=== PATIENT | female | born 1955 | race Caucasian/White ===

== ENCOUNTER → 2020-04-19 15:52 | Outpatient (CLI) | payer MEDICARE, SELFPAY ==
--- NOTE | ~2020-04-19 | MM_ITS ---
EXAMINATION: MM screening [facility] BI w lisbeth HISTORY: Screening mammogram TECHNIQUE: Craniocaudal and mediolateral oblique 3-D tomosynthesis images were obtained and synthetic 2-D images were generated. CAD analysis was submitted and interpreted. COMPARISON: 11/19/2017, 09/16/2014, 09/14/2012 BREAST PARENCHYMAL COMPOSITION: There are scattered areas of fibroglandular density. FINDINGS: RIGHT BREAST: There is no evidence of suspicious mass, calcification, or architectural distortion to suggest malignancy. There has been no significant interval change. LEFT BREAST: There is a possible mass in the anterior third of the outer breast best appreciated 2.5 cm from the nipple on mediolateral oblique tomosynthesis image 17/61. IMPRESSION: 1. Possible left breast mass. 2. Additional mammographic views and possible breast ultrasound are recommended. BI-RADS Category 0: Incomplete: Needs additional imaging evaluation. Reviewed, dictated and finalized at location A. IMPRESSION: 1. Possible left breast mass. 2. Additional mammographic views and possible breast ultrasound are recommended . BI-RADS Category 0: Incomplete: Needs additional imaging evaluation.
== END ==
PROVIDERS: PCP Family Medicine; Visit Provider Family Medicine
DX: Z12.31 Encounter for screening mammogram for malignant neoplasm of breast (principal)
CPT/HCPCS: 77063; 77067

== ENCOUNTER → 2020-05-04 07:50 | Outpatient (CLI) | payer MEDICARE, SELFPAY ==
--- NOTE | ~2020-05-04 | MMUS_ITS ---
EXAMINATION: MM diagnostic mammo unilat LT, US breast LT limited HISTORY: Follow-up left breast asymmetries TECHNIQUE: Additional 3-D tomosynthesis images of the left breast were performed and synthetic 2-D im ages were generated. CAD analysis was submitted and interpreted. High resolution left limited breast ultrasound was performed. COMPARISON: Comparison to multiple prior studies sequentially, with oldest reviewed study dated 09/14. BREAST PARENCHYMAL COMPOSITION: Breast composed of scattered areas of fibroglandular density FINDINGS: MAMMOGRAPHIC FINDINGS: Breast composed of scattered areas of fibroglandular density. There are no suspicious masses, calcifi cations or architectural distortion to suggest malignancy. ULTRASOUND: Limited left breast ultrasound: There are multiple small cysts in the periareolar location of the lef t breast, largest measuring 6 mm. No suspicious masses to suggest malignancy. IMPRESSION: 1. No evidence for malignancy in the left breast. Benign findings. 2. Routine yearly screening mammogram and regular clinical breast examination are recommended. BI-RADS Category 2: Benign finding(s). Reviewed, dictated and finalized at location A. IMPRESSION: 1. No evidence for malignancy in the left breast. Benign findings. 2. Routine yearly screening mammogram and regular clinical breast examination a re recommended. BI-RADS Category 2: Benign finding(s).
== END ==
PROVIDERS: PCP Family Medicine; Visit Provider Physician Assistant
DX: R92.8 Other abnormal and inconclusive findings on diagnostic imaging of breast (principal)
CPT/HCPCS: 76642; 77065

== ENCOUNTER 2020-06-14 10:54 | Outpatient (NON) | payer MEDICARE, SELFPAY ==
[2020-06-15 01:18] LABS: SARS-CoV-2 RNA PCR Negative
== END 2020-06-14 10:55 ==
PROVIDERS: PCP Family Medicine; Visit Provider Family Medicine
DX: Z20.828 Contact with and (suspected) exposure to other viral communicable diseases (principal)
CPT/HCPCS: 87635; C9803; U0003

== ENCOUNTER 2021-01-28 10:00 | Outpatient (CLI) | payer MEDICARE, SELFPAY ==
--- NOTE | ~2021-01-28 | US_ITS ---
EXAMINATION: US carotid duplex BI EXAM DATE: 01/28/2021 10:27 INDICATION: R51.9 - Headache, unspecified. TECHNIQUE: Grayscale, color and pulsed Doppler images of the cervical carotid arteries were obtained . The degree of vessel stenosis is placed in one of the following categories: normal, <50% stenosis, 50-69% stenosis, >=70% stenosis but less than near-occlusion, near-occlusion, or occlusion. Note that percent stenosis relative to normal distal artery lumen diameter is indirectly measured from velocit y measurements as described by Bahman, et al. Radiology 2003; 229:340-346. There is no prior study fo r comparison. FINDINGS: RIGHT SIDE: Right common carotid artery peak systolic velocity (PSV in cm/s): 72 Right bulb/internal carotid artery peak systolic velocity (PSV in cm/s): 70 Right internal carotid artery end diastolic velocity (EDV in cm/s): 20 Right ICA/CCA peak systolic ratio: 1.0 Right external carotid artery peak systolic velocity (PSV in cm/s): 65 Right vertebral artery antegrade flow: yes There is minimal carotid bulb plaque. Velocity and Doppler waveforms in the common and internal carotid arteries is normal. LEFT SIDE: Left common carotid artery peak systolic velocity (PSV in cm/s): 81 Left bulb/internal carotid artery peak systolic velocity (PSV in cm/s): 77 Left internal carotid artery end diastolic velocity (EDV in cm/s): 27 Left ICA/CCA peak systolic ratio: 0.9 Left external carotid artery peak systolic velocity (PSV in cm/s): 66 Left vertebral artery antegrade flow: yes There is minimal carotid bulb plaque. Velocity and Doppler waveforms in the common and internal carotid arteries is normal. IMPRESSION: 1. Less than 50 percent stenosis in the right internal carotid artery. 2. Less than 50 percent stenosis in the left internal carotid artery. > Reviewed, dictated and finalized at location B.
== END 2021-01-28 10:01 | disposition home or self-care (01) ==
LOC: ANHIMG 10:03
PROVIDERS: PCP Family Medicine; Visit Provider Family Medicine
DX: R51.9 Headache, unspecified (principal); I65.23 Occlusion and stenosis of bilateral carotid arteries
CPT/HCPCS: 93880

== ENCOUNTER 2022-03-28 15:28 | Outpatient (CLI) | payer MEDICARE, SELFPAY ==
--- NOTE | ~2022-03-28 | XR_ITS ---
EXAMINATION: XR ribs LT 2V w CXR 2V INDICATION: Pleurodynia TECHNIQUE: AP and lateral views of the chest and 3 views of the left ribs were obtained. COMPARISON: 02/11/2017 FINDINGS: The lungs are free of acute opacities. Calcified pulmonary nodules are consistent with old granulomatous disease. The cardiomediastinal silhouette is normal. No pleural effusion or pneumothora x. Changes of anterior fusion are noted in the lower cervical spine. There is moderate thoracic spond ylosis. There are subtle deformities at the anterior aspects of the left seventh and eighth ribs near the costochondral junctions. IMPRESSION: 1. Subtle fractures of the left seventh and eighth ribs near the costochondral junctions. 2. No acute cardiopulmonary abnormality. Reviewed, dictated and finalized at location B.
== END 2022-03-28 15:29 | disposition home or self-care (01) ==
PROVIDERS: PCP Family Medicine; Visit Provider Nurse Practitioner Gerontology
DX: S22.42XA Multiple fractures of ribs, left side, initial encounter for closed fracture (principal); X58.XXXA Exposure to other specified factors, initial encounter
CPT/HCPCS: 71046; 71100

== ENCOUNTER → 2022-05-09 10:29 | Outpatient (CLI) | payer MEDICARE, SELFPAY ==
--- NOTE | ~2022-05-09 | DEXA_ITS ---
Bone Density Report Name: MANDY PERRY Age: 67 Sex: Female Ethnicity: White Date of : 1955 Indication: postmenopausal; screening for osteoporosis; parental hip fracture; prior fracture; Referring Provider: THANH ROYAL Study: Bone densitometry was performed. Exam Date: May 09, 2022 Accession number: [id number] Bone Density: Region BMD T-score Z-score Classification AP Spine (L1-L4) 0.953 -0.9 1.1 Normal Femoral Neck (Left) 0.687 -1.5 0.2 Osteopenia Total Hip (Left) 0.803 -1.1 0.2 Osteopenia Femoral Neck (Right) 0.713 -1.2 0.4 Osteopenia Total Hip (Right) 0.837 -0.9 0.5 Normal Total Hip Mean 0.820 -1.0 0.4 Normal World Health Organization criteria for BMD impression classify patients as: Normal (T-score at or above -1.0), Osteopenia (T-score between -1.0 and -2.5), or Osteoporosis (T-score at or below -2.5). 10-year Fracture Risk(1): Major Osteoporotic Fracture 26% Hip Fracture 2.4% Reported Risk Factors: [place] (), Neck BMD=0.687, BMI=26.4, previous fracture, parental fracture (1) FRAX(R) Version 3.08. Fracture probability calculated for an untreated patient. Fracture probability may be lower if the patient has received treatment. Clinical Information Provided by Patient: Has had a low trauma fracture Parent has had a hip fracture Has used the following medications: Calcium Patient maximum height was 65 Menopause Age: 45 Does not regularly consume dairy products Drinks caffeinated beverages Onset of menses at age 13 Number of children 2 Impression: The patient has low bone mass, based on the Left Femoral Neck T-score. The patient has an estimated ten-year risk of hip fracture of 2.4% and an estimated ten-year risk of major fracture of 26%, based on the WHO FRAX algorithm. The patient has risk factors, including: parental hip fracture, previous fracture. Discussion: BONE DENSITY IS LOW AT ONE OR MORE SKELETAL SITES. THE PATIENT'S BMD AND CLINICAL RISK FACTORS CONTRIBUTE TO THIS PATIENT'S INCREASED RISK OF FRACTURE. This patient's lowest T-score is low at one or more skeletal sites. It meets the World Health Organization's (WHO) criteria for ?low bone mass? (T-score between -1.0 and -2.5). The patient's 10-year risk of a major osteoporotic fracture as calculated by FRAX exceeds the threshold where pharmacological therapy is recommended by the National Osteoporosis Foundation (NOF). However, all treatment decisions require clinical judgment and consideration of individual patient factors, including patient preferences, comorbidities, previous drug use, risk factors not captured in the FRAX model (e.g., frailty, falls, vitamin D deficiency, increased bone turnover, interval significant decline in bone density) and possible under or overestimation of fracture ris
== END ==
PROVIDERS: PCP Family Medicine; Visit Provider Nurse Practitioner Gerontology
DX: Z13.820 Encounter for screening for osteoporosis (principal); Z78.0 Asymptomatic menopausal state; M85.852 Other specified disorders of bone density and structure, left thigh; M85.851 Other specified disorders of bone density and structure, right thigh
CPT/HCPCS: 77080

== ENCOUNTER → 2022-07-01 11:21 | Outpatient (CLI) | payer MEDICARE, SELFPAY ==
--- NOTE | ~2022-07-01 | MM_ITS ---
EXAMINATION: MM screening [facility] w lisbeth HISTORY: Screening TECHNIQUE: Craniocaudal and mediolateral oblique 3-D tomosynthesis images were obtained and synthetic 2-D images were generated. CAD analysis was submitted and interpreted. COMPARISON: Comparison to multiple prior studies sequentially, with oldest reviewed study dated 09/14. BREAST PARENCHYMAL COMPOSITION: There are scattered areas of fibroglandular density. FINDINGS: There is no evidence of suspicious mass, calcification, or architectural distortion to sugg est malignancy in either breast. There has been no suspicious interval change. IMPRESSION: 1. No mammographic evidence of malignancy. 2. Recommend routine screening mammography in one year. BI-RADS Category 1: Negative Reviewed, dictated and finalized at location B. UE TECHNOLOGIST
== END ==
PROVIDERS: PCP Family Medicine; Visit Provider Family Medicine
DX: Z12.31 Encounter for screening mammogram for malignant neoplasm of breast (principal)
CPT/HCPCS: 77063; 77067

== ENCOUNTER → 2023-07-03 10:09 | Outpatient (CLI) | payer MEDICARE, SELFPAY ==
--- NOTE | ~2023-07-03 | MM_ITS ---
EXAMINATION: MM screening [facility] w lisbeth HISTORY: Screening TECHNIQUE: Craniocaudal and mediolateral oblique 3-D tomosynthesis images were obtained and synthetic 2-D images were generated. CAD analysis was submitted and interpreted. COMPARISON: Comparison to multiple prior studies sequentially, with oldest reviewed study dated 09/16. BREAST PARENCHYMAL COMPOSITION: There are scattered areas of fibroglandular density. FINDINGS: There is no evidence of suspicious mass, calcification, or architectural distortion to sugg est malignancy in either breast. There has been no suspicious interval change. IMPRESSION: 1. No mammographic evidence of malignancy. 2. Recommend routine screening mammography in one year. BI-RADS Category 1: Negative Reviewed, dictated and finalized at location A. R LAYER HELPER
== END ==
PROVIDERS: PCP Family Medicine; Visit Provider Family Medicine
DX: Z12.31 Encounter for screening mammogram for malignant neoplasm of breast (principal)
CPT/HCPCS: 77063; 77067

== ENCOUNTER 2024-09-23 07:58 | Outpatient (CLI) | payer MEDICARE, SELFPAY | END 2024-09-23 07:59 | disposition home or self-care (01) | PROVIDERS: PCP Family Medicine; Visit Provider Family Medicine | DX: Z12.31 Encounter for screening mammogram for malignant neoplasm of breast (principal); Z78.0 Asymptomatic menopausal state; M85.852 Other specified disorders of bone density and structure, left thigh | CPT/HCPCS: 77063; 77067; 77080 ==

== ENCOUNTER 2024-12-12 14:59 | Emergency (ER) | payer MEDICARE, SELFPAY ==
[2024-12-12 15:01] VITALS: BP 147/82; PULSE 73; RESP 18; TEMP 36.4; O2SAT 100
--- OUTSIDE RECORDS SUMMARY | 2024-12-12 15:02 | XMS_ITS | Continuity of Care Document ---
Author Organization [facility] Address [address] [place] [address] OWEN Sanders [phone] Support Name Relationship Address Phone MARIA FERNANDA PERRY spouse Unknown Unavailable MARIA FERNANDA PERRY spouse Unknown Unavailable Encounter Kirk GOMEZ [id number] Date(s): 12/10/24 - 12/10/[address] Pelon Hernandez M.D., Medical Tech [phone] [place] [address] Discharge Disposition: Home or Self Care Attending Physician: Rashi Fritz DO Encounter Type: Outpatient Results Laboratory List Name Date Blood Collect Police Request 12/11/24 Most recent to oldest [Reference Range]: 1 Collection Complete Done *NA* (12/11/24 12:15 AM) Social History Social History Type Response Sex Female Sex Representation Female (finding) Patient Care team information Care Team Related Persons Name: MARIA FERNANDA PERRY Insurance Providers Guarantor name: MANDY ORLANDO Health Plan Information #: 2 Payer: [employer] Member Number: NA Policy Number: NA Group Number: NA Payer Identifier: NA
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
--- OUTSIDE RECORDS SUMMARY | 2024-12-12 15:02 | XMS_ITS | Referral Summary ---
Author Organization [facility] Address [address] [place] [address] Care Team Providers Care Gift Shop Clerk Name Role Phone Elise Mcguire MD Primary Care Provider + Encounters Date Type Department Care Team Description 11/06/2024 9:20 AM CDT Office Visit [facility] ENT [address] [place] [address] [place] [address] Michael Valerio MD Cholesteatoma of left external auditory canal (Primary Dx) from Last 3 Months Allergies No known active allergies Medications omeprazole (PriLOSEC) 40 mg capsule Take 1 capsule (40 mg total) by mouth daily Active ibandronate (BONIVA) 150 mg tablet Take 1 tablet (150 mg total) by mouth every 30 (thirty) days Active atorvastatin (LIPITOR) 20 mg tablet Take 1 tablet (20 mg total) by mouth daily 90 tablet 3 04/13/2023 Active Active Problems Problem Noted Date Diagnosed Date Other specified disorders of external ear, unspe cified ear 04/26/2023 Family history of premature coronary artery dise ase 04/13/2023 Hyperlipidemia 04/13/2023 Cholesteatoma of left external auditory canal Social History Tobacco Use Types Packs/Day Years Used Date Smoking Tobacco: Former Cigarettes Tobacco Cessation:Counseling Given: Not Answered Comments Unknown Sex and Gender Information Value Date Recorded Sex Assigned at Not on file 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 Gender Identity Not on file Sexual Orientation Not on file Last Filed Vital Signs Vital Sign Reading Time Taken Comments Blood Pressure 142/80 04/13/2023 1:21 PM CDT Pulse 74 04/13/2023 1:21 PM CDT Temperature - - Respiratory Rate - - Oxygen Saturation 95% 04/13/2023 1:21 PM CDT Inhaled Oxygen Concentration - - Weight 77.5 kg (170 lb 12.8 oz) 11/06/2024 9:28 AM CDT Height 162.6 cm (5' 4 ) 11/06/2024 9:28 AM CDT Body Mass Index 29.32 11/06/2024 9:28 AM CDT Plan of Treatment Not on file Insurance UHC MEDICARE ADVANTAGE AETNA MEDICARE GOLD UHC MEDICARE ADVANTAGE UHC MEDICARE ADVANTAGE Care Teams Gift Shop Clerk Relationship Specialty Start Date End Date Elise Mcguire MD [address] [place] [address] DR CALDERA [address] [place] [id number] PCP - General Family Medicine 10/26/22
--- OUTSIDE RECORDS SUMMARY | 2024-12-12 15:02 | XMS_ITS | Continuity of Care Document ---
Author Organization [facility] Address [address] [place] [address] Phone Care Team Providers Care Telephone Service Adviser Name Role Phone Ángel Merino DO Unavailable Unavailable Advance Directives Directive Yes / No Effective Date File Name No Information Encounters Encounter Description Practice Location Reason(s) For Visit Diagnoses Date Provider Providers Copied on Encounter [facility], [address], [place], [place], [id number], [place] tel:[phone] [facility] No Information Angelique Sinha. [address] [place], [address], [place]. tel:[phone] Family History Family Member Type Diagnosis Age At Onset No Information Payers Payer name Insurance type Covered alliance party ID Authoriza tion(s) No Information Social History Type Description Quantity Date Captured Comments Sex Female Smoking Status No Information Chief Complaint And Reason For Visit No Information Reason For Referral Reason For Referral No Information History Of Present Illness Encounter Date Complaint History Of Prese nt Illness No Information Functional Status Date Functional Assessmen t No Information Instructions Date Instruction Additional Infor mation No Information Assessments Type Assessment Date No Information Patient Care Teams Name Effective Dates (start - stop) Status Members No Information
--- OUTSIDE RECORDS SUMMARY | 2024-12-12 15:02 | XMS_ITS | Clinical Summary ---
Author Organization [facility] Address [address] [place] [address] Care Team Providers Care Furnace Tapper Name Role Phone Elise Mcguire MD Primary Care Provider + Allergies No known active allergies Medications omeprazole [...] 04/13/2023 Cholesteatoma of left external auditory canal Encounters Date Type Department Care Team Description 11/06/2024 9:20 AM CDT Office Visit [facility] - [facility] ENT 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 Identity Not on file Sexual Orientation Not on file Obstetrics History Last Filed Vital Signs Vital Sign Reading Time Taken Comments Blood Pressure 142/80 04/13/2023 1:21 PM CDT Pulse 74 04/13/2023 1:21 PM CDT Temperature - - Respiratory Rate - - Oxygen Saturation 95% 04/13/2023 1:21 PM CDT Inhaled Oxygen Concentration - - Weight 77.5 kg (170 lb 12.8 oz) 11/06/2024 9:28 AM CDT Height 162.6 cm (5' 4 ) 11/06/2024 9:2 8 AM CDT Body Mass Index 29.32 11/06/2024 9:28 AM CDT Plan of Treatment Health Maintenance Due Date Last Done Comments Breast Cancer Screening-Mammogram 1955 Colon Cancer Screening-Colonoscopy 1955 Depression Screening 1955 Fall Risk Assessment 1955 Hepatitis C Screening 1955 Osteoporosis Screening-Bone Density Scan 1955 Hepatitis B Screening 1973 Pneumococcal vaccine 65+ (1 of 1 - PCV) 2005 Well Visit 65+ 2020 Covid-19 Vaccine ( - 2023- season) 2024 06/17/2021, 10/01/2020, 09/03/2020 DTaP/Tdap/Td Vaccine (2 - Td or Tdap) 10/13/2034 Zoster Vaccine Completed 01/23/2023, 09/18/2022 Influenza Vaccine Completed 07/11/2024 Insurance [facility] MEDICARE ADVANTAGE [facility] Address: [id number] [place] [address] AETNA MEDICARE GOLD MEDICARE ADVANTAGE [facility] Address: [address] [address] [place] [address] Care Teams Furnace Tapper Relationship Specialty Start Date End Date Elise Mcguire MD [address] [place] [address] [address] PCP - General Family Medicine 10/26/22
--- OUTSIDE RECORDS SUMMARY | 2024-12-12 15:02 | XMS_ITS | CONTINUITY OF CARE DOCUMENT ---
Author Name tad mishra Address Unknown Organization [facility] Address [address] [place] [address] Phone [phone] Care Team Providers Care Customs Broker Name Role Phone Alhaji Hay MD Unavailable Alhaji Hay MD Unavailable [phone] INSURANCE PROVIDERS Payer name Policy type / Coverage type [employer] red alliance party ID AETNA MEDICARE GOLD ADVANTAGE HMO Medicare [id number]
--- OUTSIDE RECORDS SUMMARY | 2024-12-12 15:02 | XMS_ITS | Data Portability ---
Author Organization [place] [facility], Main Office Address [address] [place] [address] Care Team Providers [facility] Supervisor Name Role Phone PATRICIA HARMAN ZACHARY Primary Care Provider [phone] PATRICIA HARMAN ZACHARY Referring Provider [phone] Assessment Encounter Date Assessment Date Assessment LastModified by Organization Details LastModified Time 05/14/2024 05/14/2024 68-year-old female presents for follow-up status post right shoulder arthroscopy, debridement, rotator cuff repair with patch, biceps tenodesis, subacromial decompression on 08/02/2023. She reports she is having a lot of pain and weakness in the shoulder. It is affecting her ability to do daily activities. She has been doing physical therapy which is helpful until she stops. When she stops the pain returns. She rates her pain today 8/10. She occasionally takes aleve and uses topical creams, which does not help. Imaging: xrays reviewed today show no acute bony changes or fractures. She does have mild degenerative osteoarthritic changes. Incisions are well healed. Tenderness with palpitation around the entire shoulder. Range of motion 130/20/lower lumbar. 4/5 rotator cuff strength. Today we recommended a cortisone injection. She elected to proceed with the injection. She should continue to take Aleve consistently for the pain. If the physical therapy is making her arm feel better she should continue doing so, she can work on the exercises at home on her own if she would prefer that over going to a physical therapist. We can see her back as needed for pain. [email or web address] Not available 05/14/2024 13:21:27 08/14/2024 08/14/2024 This note is dictated and transcribed by [employer]. [employer] variances may occur. Despite proofreading, typographical errors may occur. Occasional wrong-word or 'tmmbm-k-jesj' substitutions may have occurred due to the inherent limitations of voice recording. Read the chart carefully and recognize, using context, where substitutions have occurred. Not available 08/14/2024 12:33:45 08/21/2024 08/21/2024 This note is dictated and transcribed by [employer]. [employer] variances may occur. Despite proofreading, typographical errors may occur. Occasional wrong-word or 'ncuxn-t-rrtb' substitutions may have occurred due to the inherent limitations of voice recording. Read the chart carefully and recognize, using context, where substitutions have occurred. Not available 08/21/2024 10:09:37 09/01/2024 09/01/2024 This note is dictated and transcribed by [employer]. [employer] variances may occur. Despite proofreading, typographical errors may occur. Occasional wrong-word or 'eosjb-z-odqy' substitutions may have occurred due to the inherent limitations of voice recording. Read the chart carefully and recognize, using context, where substitutions have occurred. Not available 09/01/2024 14:40:01 Plan of Treatment Reminders Order Date Submit Date Provider Last Modified By Organization Details Last Modified Time Details Appointments None recorded. Lab noninvasive colorectal cancer DNA + occult blood screening, QL, stool 2023 [facility] (Cologuard Orders Only), [address], [address], [place], [address], 13:42:08 Referral None recorded. Procedures injection/a spiration joint/bursa (PROC) 2023 024 [email or web address] In-Office Order, Internal Use Only DO Not Attach Compendium DO Not Attach Compendium, Do Not Delete/merge, [id number] 11:36:52 Surgeries None recorded. Imaging XR, shoulder, 2 or more view 2023 024 [email or web address] [place], [address], [place], [address], 4 23:37:07 Medication Orders ketoconazol e 2 % topical cream 2024 025 [facility], [address] [place], [address], 5 14:40:45 bupivacaine HCl 0.5 % (5 mg/mL) injection solution [address] [facility], [address] [place] [address], [address], 4 23:37:07 Kenalog 10 mg/mL suspension for injection [address] [facility], [address] [place] [address], [address], 4 23:37:07 omeprazole 40 mg capsule,del ayed release 2023 024 [facility], [address] [place] [address], [address], 4 10:09:14 ibandronate 150 mg tablet 2023 024 [facility] 176, [address] [place] [address], [address], 4 10:09:13 Patient TargetsNo targets recorded. Patient Instructions Encounter Date Encounter Id Patient Instructions Last Modified By Organization Details Last Modified Time 08/21/2024 [id number] paronychia: care instructions Not available 08/21/2024 10:10:19 Reason for Referral None Reported. Results Created Date Observation Date Name Description Value Unit Range Abnormal Flag Note LastModifiedBy Organization Detail LastModifiedTime 04/17/20 24 04/17/2024 COLOG UARD cologuard result reportable NEGATI VE negati ve normal NEGAT DIOGO TEST RESUL T. A negat diogo Colog uard resul t indic ates a low likel ihood that a color ectal cance r (CRC) or advan shalonda adeno ma (jerome omato us polyp s with more advan shalonda pre-m align ant featu res) is prese nt. The [facility] e that a perso n with a negat diogo Colog uard test has a color ectal cance r is less than 1 in 1500 (nega tive predi ctive value >99.9 %) or has an advan shalonda adeno ma is less than 5.3% (nega tive predi ctive value 94.7% ). These data are based on a prosp ectiv e cross -sect ional study of 10,00 0 indiv idual s at [facility] risk for color ectal cance r who were scree edward with both Colog uard and colon oscop y. (David Esposito et al, N Engl J Med 2014; 370(1 4):12 86-12 97) The gualberto l value (refe rence range ) for this assay is negat diogo. COLOG UARD RE-SC REEBELLA NG RECOM MENDA TION: Perio dic color ectal cance r scree cornelio is an impor tant part of preve ntive healt hcare for asymp tomat ic indiv idual s at [place] [facility] risk for color ectal cance r. Follo wing a negat diogo Colog uard resul t, the Ameri can Cance r Socie ty and U.S. Multi -Soci ety Task Force scree cornelio guide lines recom mend a Colog uard re-sc reeni ng inter jake of 3 years . Refer ences : Ameri can Cance r Socie ty Guide line for Color ectal Cance r Scree cornelio: https ://coreen w.can cer.o rg/ca ncer/ colon -rect al-ca ncer/ detec tion- diagn osis- stagi ng/ac s-rec ommen datio ns.ht ml.; Matt KELLEY, Ino adair CR, Cate MustafaK, Color ectal Cance r Scree cornelio: Recom menda tions for Physi cians and Patie nts from the U.S. Multi -Soci ety Task Force on Color ectal Cance r Scretruman grimes , Am Moon rodriguez y 2017; 112:1 016-1 030. TEST DESCR IPTIO N: [place] site algor ithmi c bhavana sis of stool DNA-b nata mo[place] with hemog lobin immun oassa y. Quant itati ve value s of indiv idual bioma rkers are not repor table and are not assoc iated with indiv idual bioma rker resul t refer ence range s. Colog uard is inten ded for color ectal cance r scree cornelio of adult s of eithe r sex, 45 years or older , who are at [facility] for color ectal cance r (CRC) . Colog uard has been appro chet for use by the U.S. FDA. The perfo rmanc e of Colog uard was estab lishe d in a cross secti onal study of [facility] adult s aged 50-84 . Colog uard perfo rmanc e in patie nts ages 45 to 49 years was estim ated by sub-g roup bhavana sis of near- age group s. Colon oscop ies perfo rmed for a posit diogo resul t may find as the most clini jackson signi saumya fernández n: color ectal cance r [4.0% ], advan shalonda adeno ma (incl uding sessi le iain suzi polyp s great er than or equal to 1cm diame ter) [20%] or non- advan shalonda adeno ma [31%] ; or no color ectal neopl manuela [45%] . These estim ates are deriv ed from a prosp ectiv e cross -sect ional scree cornelio study of 10,00 0 indiv idual s at [facility] risk for color ectal cance r who were scree edward with both Colog uard and colon oscop y. (David You al, N Engl J Med 2014; 370(1 4):12 86-12 97.) Colog uard may produ ce a false negat diogo or false posit diogo resul t (no color ectal cance r or preca ncero us polyp prese nt at colon oscop y follo w up). A negat diogo Colog uard test resul t does not guara ntee the absen ce of CRC or advan shalonda adeno ma (pre- cance r). The curre nt Colog uard scree cornelio inter jake is every 3 years . (Amer ican Cance r Socie ty and U.S. Multi -Soci ety Task Force ). Colog uard perfo rmanc e data in a 0 patie nt pivot al study using colon oscop y as the refer ence metho d can be acces sed at the follo wing locat ion: www.e xactl abs.c om/re sults . Addit ional descr iptio n of the Colog uard test proce ss, warni ngs and preca ution s can be found at www.c ologu gavin.c om. Not Available [facility] (Cologuard Orders Only) [address], [place], [address], 04/20/2024 13:42:08 03/20/20 24 03/20/2024 MRI, orbit s, w/wo contr ast No observ ation record ed. [address], [address], 03/25/2024 15:00:56 03/20/20 24 03/20/2024 MRI, brain + orbit s, w/wo contr ast No observ ation record ed. [address], [address], 03/25/2024 15:02:19 05/14/20 24 XR, shoul solo, 2 or more view No observ ation record ed. [facility] [place] [address], [place], [address], 05/14/2024 11:09:04 12/07/03/2023 MAMMO , scree cornelio, digit al, bilat eral No observ ation record ed. [email or web address] [facility] [address], [place], [address], 08/28/2024 10:23:22 Result Notes None recorded. Problems Name Problem SNOMED Code Status Onset Date Resolution Date Notes Provider Name and Address Organization Details Recorded Time Pain of right shoulder joint 6644405615343 9100 Active 2021 Not Available [facility] 3 05:57:27 Tendinitis of right rotator cuff 7676426490955 9104 Active 2021 Not Available [facility] 3 05:57:27 Impingemen t syndrome of right shoulder region 9630766025186 02 Active 2021 Not Available [facility] 3 05:57:27 Fracture of forearm 42883394 Active Not Available [facility] 3 05:57:27 Osteoarthr itis of right acromiocla vicular joint 4256766843298 104 Active 2022 ZHANG Clifford [address], [address], [place], [address] , [facility] 3 10:54:00 Herpes simplex 14313996 Active 2022 Elise Mcguire MD [address], [address], [place], [address] , [facility] 3 11:07:11 Osteopenia 019146944 Active 2022 Elise Mcguire MD [address], [address], [place], [address] , [employer] 3 11:20:20 Cough 09248626 Active 2022 Elise Mcguire MD [address], [place], [address] , [employer] 3 11:23:28 Lid lag 49277721 Active 2022 Elise Mcguire MD [address], [place], [address] , [facility] 3 11:26:17 Ptosis of eyelid 93231206 Active 2022 Elise Mcguire MD [address], [address], [place], [address] , [facility] 3 11:26:38 Ptosis of eyelid 50287602 Active 2022 Elise Mcguire MD [address], [address], [place], [address] , [facility] 3 11:26:59 Hyperlipid emia screening Active 2022 Elise Mcguire MD [address], [address], [place], [address] , [facility] 3 11:28:07 Internal impingemen t of right shoulder 3213795789445 107 Active 2022 QUOC Mohamud, [facility] 3 08:58:45 Osteoarthr itis 892468832 Active 2022 QUOC Mohamud, [place] - [facility] 3 08:59:00 Epidermoid cyst 691449103 Active 2022 Elise Mcguire MD [address], [address], [place], [address] , [facility] 3 11:28:38 Pain of toe of left foot 9948523481812 08 Active 2022 Elise Mcguire MD [address], [address], [place], [address] , [facility] 3 11:37:04 Gastroesop hageal reflux disease without esophagiti s 166276288 Active 2022 Elise Mcguire MD [address], [address], [place], [address] , [facility] [employer] 3 13:31:34 Pain of left shoulder joint 0679398848651 9109 Active 2022 Cayla Hodge CMA null, [facility] [employer] [facility] 3 10:58:01 Tendinitis of left rotator cuff 0831828856621 9101 Active 2022 ZHANG Clifford [address], [address], [place], [address] , [facility] [employer] [facility] [employer] 3 11:27:42 Partial thickness rotator cuff tear 197562524 Active 2022 ZHANG Clifford [address], [address], [place], [address] , [facility] [employer] [facility] [employer] 3 11:28:08 Onychomyco sis of toenails 905344555 Active 2023 Elise Mcguire MD [address], [address], [place], [address] , [facility] [employer] [facility] [employer] 4 11:06:13 Dystrophia unguium 39889778 Active 2023 Matthew Starks DPM [address], [address], [place], [address] , [facility] [facility] [employer] [facility] 4 10:58:11 Pain in toe 918623023 Active 2023 Matthew Starks DPM [address], [address], [place], [address] , [facility] [employer] [facility] [employer] 4 10:58:21 Problem Notes None recorded. Procedures Surgical History Date Name Laterality Status Provider Name and Address Organization Details Recorded Time 08/21/19 Toenail avulsion completed Matthew Starks DPM [address], [address], [place], [address], [facility] [employer] [facility] [employer] [facility] 08/21/2024 10:09:32 05/14/20 24 Ortho - Cortisone Injection completed Irene Hardy NP [address], [address], [place], [address], [facility] 05/14/2024 13:21:39 12/11/19 Nail Debridement completed Matthew Starks DPM [address], [address], [place], [address], [facility] 12/11/2023 10:57:51 10/30/19 24 Medicare Wellness CPT Code, subsequent completed Enoch Jensen RN [facility] 10/30/2023 10:30:30 Shoulder completed Elise Mcguire MD [address], [address], [place], [address], [facility] 10/30/2023 10:49:34 Neck Surgeries completed Elise Mcguire MD [address], [address], [place], [address], [facility] 10/12/2022 11:17:31 Tubal Ligation completed Not Available [facility] 09/20/2022 05:52:57 tonsillectomy completed Elise Mcguire MD [address], [address], [place], [address], [facility] 10/12/2022 11:17:57 open reduction of fracture with internal fixation completed Elise Mcguire MD [address], [place], [address], [facility] 10/12/2022 11:18:20 Cataract Surgery completed Corinne Sheffield [facility] 12/11/2023 10:45:23 Imaging Results Imaging Date Name Status LastModified by Organ [facility] Details LastModified Time 03/20/2024 MRI, orbits, w/wo contrast completed [address], [address], 03/25/2024 15:00:56 03/20/2024 MRI, brain + orbits, w/wo contrast completed [address], [address], 03/25/2024 15:02:19 05/14/2024 XR, shoulder, 2 or more view completed [email or web address] [facility] [place] [address] [facility] [address], [place], [address], 05/14/2024 11:09:04 07/03/2023 MAMMO, screening, digital, bilateral completed [email or web address] [facility] [address], [place], [address], 08/28/2024 10:23:22 Procedure Notes None recorded. Medical Equipment None Reported. Allergies No known drug allergies Medications Name Sig Start Date Stop Date Status Note LastModified by Organization Details LastModified Time silver sulfadiazi ne 1 % topical cream 04/24 completed Not Available Not Available Not Available neomycin-p olymyxin-h ydrocort 3.5 mg/mL-10,0 00 unit/mL-1 % ear solution 10/12 completed Not Available Not Available Not Available prednisone 10 mg tablet TAKE 4 TABLETS BY MOUTH ONCE DAILY FOR 3 DAYS, THEN TAKE 3 TABLETS DAILY FOR 3 DAYS,THEN TAKE 2 TABLETS DAILY FOR 3 DAYS AND 1 ONCE DAILY FOR 3 DAYS 10/12 completed Not Available Not Available Not Available atorvastat in 20 mg tablet TAKE 1 TABLET BY MOUTH ONCE DAILY 10/29 completed Not Available Not Available Not Available trazodone 50 mg tablet TAKE 1 TABLET BY MOUTH EVERY DAY AT BEDTIME NEEDED FOR INSOMNIA 10/12 completed Not Available Not Available Not Available azithromyc in 250 mg tablet TAKE 2 TABLETS BY MOUTH ON DAY ONE, THEN 1 TABLET DAILY FOR 4 DAYS 10/12 completed Not Available Not Available Not Available ofloxacin 0.3 % eye drops INSTILL 1 DROP INTO AFFECTED EYE(S) THREE TIMES DAILY STARTING 2 DAYS PRIOR TO SURGERY, CONTINUE FOR 1 WEEK AFTER 10/29 completed Not Available Not Available Not Available valacyclov ir 1 gram tablet 1/2 tab up to once daily 05/23 completed Not Available Not Available Not Available hydrocodon e 5 mg-acetami nophen 325 mg tablet 1 tab q6h prn for pain 10/29 completed Not Available Not Available Not Available tretinoin 0.025 % topical cream APPLY THIN LAYER TOPICALLY TO AFFECTED AREAS AT NIGHT AFTER CLEANSING LAYER WITH MOISTURIZ ER NEEDED 04/14 completed dried out pts face Not Available Not Available Not Available meloxicam 15 mg tablet 01/21 completed Not Available Not Available Not Available bupivacain e HCl 0.5 % (5 mg/mL) injection solution Take 20 mg by injection route. 2023 active Not Available Not Available Not Avai lable valacyclov ir 500 mg tablet active Not Available Not Available Not Available ciprofloxa gregg 500 mg tablet 10/12 completed Not Available Not Available Not Available sulfametho xazole 800 mg-trimeth oprim 160 mg tablet 04/24 completed Not Available Not Available Not Available omeprazole 40 mg capsule,de layed release 1 po qday active Not Available Not Available No t Available ketorolac 0.5 % eye drops INSTILL 1 DROP INTO AFFECTED EYE(S) THREE TIMES DAILY STARTING 2 DAYS PRIOR TO SURGERY, CONTINUE FOR 1 WEEK AFTER SURGERY 10/29 completed Not Available Not Available Not Available prednisone 10 mg tablets in a dose pack Take 1 tab by mouth, 3 times a day for 3 daysTake 1 tab by mouth 2 times a day for 2 daysTake 1 tab by mouth once a day for 1 day 10/12 completed Not Available Not Available Not Available prednisolo ne acetate 1 % eye drops,susp ension INSTILL 1 DROP INTO AFFECTED EYE(S) THREE TIMES DAILY STARTING AFTER SURGERY, CONTINUIN G FOR 3 WEEKS 10/29 completed Not Available Not Available Not Available lorazepam 0.5 mg tablet 10/12 completed Not Available Not Available Not Available ciprofloxa gregg 0.3 % eye drops APPLY ONE DROP IN AFFECTED EYE 4 TIMES A DAY. SURGERY DROP REGIMEN STATES. 10/29 completed Not Available Not Available Not Available Kenalog 10 mg/mL suspension for injection Take 10 mg by injection route. 2023 active NDC: [id number] [phone] Not Available Not Available Not Available baclofen 10 mg tablet TAKE 1 TABLET BY MOUTH THREE TIMES DAILY 04/14 completed Not Available Not Available Not Available hydrocodon e 7.5 mg-acetami nophen 325 mg tablet 04/24 completed Not Available Not Available Not Available cephalexin 500 mg capsule 01/21 completed Not Available Not Available Not Available promethazi ne 25 mg tablet 01/21 completed Not Available Not Available Not Available azelastine 137 mcg (0.1 %) nasal spray 01/21 completed Not Available Not Available Not Available ketoconazo le 2 % topical cream APPLY CREAM TOPICALLY TO AFFECTED AREA ONCE DAILY active Not Available Not Available No t Available fluticason e propionate 50 mcg/actuat ion nasal spray,susp ension 01/21 completed Not Available Not Available Not Available doxycyclin e hyclate 100 mg tablet TAKE 1 TABLET BY MOUTH TWICE DAILY FOR 7 DAYS 05/15 completed Not Available Not Available Not Available naproxen 500 mg tablet Take 1 tablet twice a day by oral route. 10/12 completed Not Available Not Available Not Available amoxicilli n 875 mg-potassi um clavulanat e 125 mg tablet TAKE 1 TABLET BY MOUTH TWICE DAILY active Not Available Not Available No t Available ibandronat e 150 mg tablet TAKE 1 TABLET BY MOUTH ONCE EVERY MONTH active Not Available Not Available No t Available valacyclov ir active Not Available Not Available Not Available Boniva 04/14 completed Not Available Not Available Not Available lidocaine (PF) 10 mg/mL (1 %) injection solution In office injection administe red by the provider 10/12 completed [facility]: 0409-4 [id number] Not Available Not Available Not Available lidocaine (PF) 20 mg/mL (2 %) injection solution Take 80 mg by injection route. 10/12 completed Not Available Not Available Not Available ropivacain e (PF) 5 mg/mL (0.5 %) injection solution Take 20 mg by injection route. 10/12 completed [facility] [address]- 064-01 Not Available Not Available Not Available Multi Vitamin 08/17 completed Not Available Not Available Not Available Jublia 10 % topical solution with applicator APPLY TOPICALLY TO AFFECTED TOENAILS ONCE DAILY active Not Available Not Available No t Available Vitals Date Recorded Body height Body mass index (BMI) Body weight Body temperature Heart rate Oxygen saturation Oxygen saturation in Arterial blood by Pulse oximetry Systolic blood pressure Diastolic blood pressure Provider Name and Address Organization Details Last Updated DateTime 4 165.1 cm 28.1 kg/m2 11403.1 1 g 97.7 [degF] 80 /min 98 % 98 % 146 mm[Hg] 74 mm[Hg] Enoch Jensen RN [facility] [employer] [facility] 4 10:00:21 Date Recorded Body height Body mass index (BMI) Body weight Provider Name and Address Organization Details Last Updated DateTime 05/14/2024 165.1 cm 27.5 kg/m2 12549.74 g QUOC Mejia [facility] [email or web address] [facility] 05/14/2024 11:06:02 Date Recorded Body height Body mass index (BMI) Body weight Heart rate Respiratory rate Oxygen saturation Oxygen saturation in Arterial blood by Pulse oximetry Systolic blood pressure Diastolic blood pressure Provider Name and Address Organization Details Last Updated DateTime 5 165.1 cm 27.5 kg/m2 70967.7 4 g 108 /min 14 /min 98 % 98 % 133 mm[Hg] 92 mm[Hg] Corinne Pacheco [facility] [employer] [facility] 5 11:20:49 Date Recorded Body height Body mass index (BMI) Body weight Heart rate Respiratory rate Body temperature Oxygen saturation Oxygen saturation in Arterial blood by Pulse oximetry Systolic blood pressure Diastolic blood pressure Provider Name and Address Organization Details Last Updated DateTime 5 165.1 cm 27.5 kg/m2 68492.7 4 g 98 /min 14 /min 98.6 [degF] 98 % 98 % 130 mm[Hg] 86 mm[Hg] Wendy Lim MA [facility] [employer] [facility] 5 09:25:29 Date Recorded Body height Body mass index (BMI) Body weight Heart rate Respiratory rate Body temperature Oxygen saturation Oxygen saturation in Arterial blood by Pulse oximetry Systolic blood pressure Diastolic blood pressure Provider Name and Address Organization Details Last Updated DateTime 5 165.1 cm 27.5 kg/m2 16012.7 4 g 98 /min 14 /min 98.2 [degF] 98 % 98 % 130 mm[Hg] 86 mm[Hg] Carmen Pitt [facility] [email or web address] [facility] 5 12:18:54 Social History Question Answer Notes LastModified by Organizat ion Details LastModified Time Tobacco Smoking Status Former Smoker quit 11/01/2008 Elise Mcguire MD [address] [facility], [facility] [address], [place], [address], [facility] [email or web address] [facility] 10/12/2022 11:16:15 What Is Your Level Of Caffeine Consumption? Moderate [email or web address] Information not available 10/12/2022 What Type Of Diet Are You Following? REGULAR [email or web address] Information not available 10/12/2022 When Did You Quit Smoking? 11-15yearssin celastcigaret te [email or web address] Information not available 10/12/2022 What Was The Date Of Your Most Recent Tobacco Screening? 05/14/2024 [email or web address] Information not available 05/14/2024 Have You Ever Been Counseled For Unhealthy Alcohol Use? No Information not available 12/11/2023 Has Tobacco Cessation Counseling Been Provided? No Information not available 12/11/2023 How Many Years Have You Smoked Tobacco? 38 [id number] Information not available 09/20/2022 Have You Used IV Drugs? No [email or web address] Information not available 10/12/2022 Do You Have Any Dietary Restrictions? No [email or web address] Information not available 10/12/2022 Sex: Unknown Functional Status Question Answer Note LastModified by [employer] Details LastModified Time Do you use any illicit or recreational drugs? Yes weed/ gummies [email or web address] Information not available 10/12/2022 Do you or have you ever used any other forms of tobacco or nicotine? No Information not available 12/11/2023 What is your level of alcohol consumption? Moderate [email or web address] Information not available 10/12/2022 What is your exercise level? Moderate Information not available 10/12/2022 Mental Status None recorded. Family History Relationship Description Onset Age of this Age Resolved Age Notes LastModified by Organization Details LastModified Time Mother Heart disease [email or web address] [id number] Not available 09/20/2022 05:52:58 Father Hypertensive disorder [email or web address] [id number] Not available 09/20/2022 05:52:58 Father Diabetes mellitus [email or web address] [id number] Not available 09/20/2022 05:52:58 Mother Carcinoma common bile duct [email or web address] Not available 2022 11:14:39 Mother Complication of anesthesia [email or web address] Not available 05/15 10:52:01 Mother Family history of malignant neoplasm [email or web address] Not available 2022 10:52:19 Mother Hypertensive disorder [email or web address] Not available 2022 10:52:27 Unspecified Relation Arthritis Not available 024 10:44:22 Medical History Condition Response BLINDNESS N KIDNEY STONES N MRSA N CARPAL TUNNEL SYNDROME N LUNG

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
--- OUTSIDE RECORDS SUMMARY | 2024-12-12 16:00 | XMS_ITS | Continuity of Care Document ---
Author Organization [facility] Address [address] [place] [address] Phone Care Team Providers Care Cap And Stud Machine Operator Name Role Phone Ángel Merino DO Unavailable Unavailable Advance Directives Directive Yes / No Effective Date File Name No Information Encounters Encounter Description Practice Location Reason(s) For Visit Diagnoses Date Provider Providers Copied on Encounter [facility], [address], [place], [place], [id number], [place] tel:[phone] [facility] No Information Angelique Sinha. [address] [place], [address], [place]. tel:[phone] Family History Family Member Type Diagnosis Age [...]
--- OUTSIDE RECORDS SUMMARY | 2024-12-12 16:00 | XMS_ITS | Clinical Summary ---
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
--- OUTSIDE RECORDS SUMMARY | 2024-12-12 16:00 | XMS_ITS | CONTINUITY OF CARE DOCUMENT ---
Author Name tad mishra Address Unknown Organization [facility] Address [address] [place] [address] Phone [phone] Care Team Providers Care Corporate Trainer Name Role Phone Alhaji Hay MD Unavailable Alhaji Hay MD Unavailable INSURANCE PROVIDERS Payer name Policy type / Coverage type [place] red republican ID [employer] MEDICARE GOLD ADVANTAGE HMO Medicare [id number]
--- OUTSIDE RECORDS SUMMARY | 2024-12-12 16:00 | XMS_ITS | Referral Summary ---
Author Organization [facility] Address [address] [place] [address] Care Team Providers Care Straw Hat Brim Cutter Operator Name Role Phone Elise Mcguire MD Primary Care Provider + Encounters Date Type Department Care Team Description 11/06/2024 9:20 AM CDT Office Visit [facility]) - [facility] E[facility] [address] 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
== END 2024-12-12 16:07 | disposition home or self-care (01) ==
PROVIDERS: Emergency Provider Emergency Medicine; PCP Family Medicine
DX: S29.012A Strain of muscle and tendon of back wall of thorax, initial encounter (principal); K21.9 Gastro-esophageal reflux disease without esophagitis; K44.9 Diaphragmatic hernia without obstruction or gangrene; K22.70 Barrett's esophagus without dysplasia; Z98.1 Arthrodesis status; Z87.891 Personal history of nicotine dependence; V43.53XA Car driver injured in collision with pick-up truck in traffic accident, initial encounter
CPT/HCPCS: 99281